=== PATIENT | female | born 1945 | race Caucasian/White ===

== ENCOUNTER 2017-12-02 10:35 | Outpatient (CLI) | payer MEDICARE ==
[~2017-12-02 10:35] MED LIST: Iopamidol 370 76% 100 ML VIAL ONE
--- NOTE | 2017-12-02 12:17 | CT ---
CT ABDOMEN AND PELVIS WITH IV AND ORAL CONTRAST: Date: 12/02/17 HISTORY: Abdominal pain. Constipation. Diarrhea. FINDINGS: Lung bases are clear. Prominent degenerative changes of the lumbar spine. Gallbladder is surgically a bsent. Small hemangioma noted centrally within the anterior segment right liver lobe. Calcification w ithin the arterial structures. Large amount of stool throughout the colon. Small amount of oral contrast is apparent within the distal esophagus. IMPRESSION: 1. Small amount of gastroesophageal reflux. 2. Constipation. 3. Status post cholecystectomy. 4. Prominent degenerative changes lumbar spine. POS: [facility]
== END 2017-12-02 10:36 | disposition home or self-care (01) ==
LOC: SCSCT 10:35
PROVIDERS: ATTEND Internal Medicine Gastroenterology
DX: R10.9 Unspecified abdominal pain (principal); D64.9 Anemia, unspecified; K21.9 Gastro-esophageal reflux disease without esophagitis; K59.00 Constipation, unspecified; M47.896 Other spondylosis, lumbar region; Z90.49 Acquired absence of other specified parts of digestive tract
CPT/HCPCS: 74177

== ENCOUNTER 2018-01-02 10:46 | Outpatient (CLI) | payer MEDICARE ==
--- NOTE | 2018-01-09 14:47 | MMO ---
BILATERAL SCREENING MAMMOGRAM: Date: 01/02/18 HISTORY: Annual screening exam. COMPARISON: 08/18/16, 05/15/15, 02/19/14. This patient's mammogram was interpreted with the assistance of computer-aided detection. FINDINGS: The breasts are predominantly fatty replaced. Calcifications in both breasts are stable. Intramammary node on the right is unchanged. Biopsy clip is demonstrated within the left breast. IMPRESSION: BIRADS 2: Benign Finding(s) POS: [facility]
== END 2018-01-02 10:47 | disposition home or self-care (01) ==
LOC: SCSMAMMO 10:46
PROVIDERS: ATTEND Family Medicine
DX: Z12.31 Encounter for screening mammogram for malignant neoplasm of breast (principal)
CPT/HCPCS: 77067

== ENCOUNTER 2019-02-01 20:48 | Emergency (ER) | payer MEDICARE ==
--- NOTE | 2019-02-01 22:55 | ULT ---
US Venous Doppler Rt Unilat History: Pain Comparison: None. Findings: Real-time grayscale and color evaluation as well as partial analysis of the right lower ext remity venous system was performed. The common femoral, femoral, proximal portions greater saphenous and deep femoral veins as well as the popliteal and posterior tibial veins were interrogate d. Partially occlusive thrombus of the right posterior tibial vein. Remainder the veins are patent. Impression: Partially occlusive thrombus right posterior tibial vein.
[2019-02-01] MEDS ORDERED: Enoxaparin Sodium 100 MG/ML SYRINGE ONE (23:09)
[2019-02-01 23:38] LABS: #Basophils 0.1 thou/uL (0.0-0.2); #Eosinphils 0.2 thou/uL (0.0-0.7); #Lymphocytes 2.4 thou/uL (1.20-3.40); #Monocytes 0.8 thou/uL (0.11-0.59); #Neutrophils 4.1 thou/uL (1.40-6.50); %Basophils 1.2 % (0.0-1.0); %Eosinophils 3.2 % (0.0-10.0); %Lymphocytes 31.7 % (21.0-51.0); %Monocytes 10.7 % (0.0-10.0); %Neutrophils 53.2 % (42.0-75.0); Hemoglobin 14.6 g/dL (12.0-16.0); Mean Corpuscular HGB CONC 32.2 g/dL (32.0-36.0); Mean Corpuscular Hemoglobin 29.6 pg (27.0-31.0); Mean Platelet Volume 6.2 fL (7.4-10.4); Platelet Count 252 thou/uL (130-400); RBC Distribution Width 15.2 % (11.5-14.5); Red Blood Cell (RBC) Count 4.92 mill/uL (4.20-5.40); White Blood Cell (WBC) Count 7.6 thou/uL (4.8-10.8)
[2019-02-01 23:42] LABS: INR-International Normal Ratio 0.9; PTT 34.3 SEC (22.9-36.1); Prothrombin Time 12.6 SEC (12.0-14.7)
[2019-02-01 23:49] LABS: Anion Gap 15 mmol/L (10-20); BUN (Urea Nitrogen) 6 mg/dL (9.8-20.1); Calc. Creatinine Clearance 0 mL/min (70-130); Calcium 9.4 mg/dL (7.8-10.44); Carbon Dioxide 25 mmol/L (23-31); Chloride 99 mmol/L (98-107); Estimated GFR-MDRD 75; Glucose 104 mg/dL (83-110); Potassium 4.3 mmol/L (3.5-5.1); Sodium 135 mmol/L (136-145)
--- NOTE | 2019-02-02 07:41 | CT ---
PRELIMINARY REPORT/[facility]/EMERGENCY AFTER HOURS PROCEDURE: PROCEDURE INFORMATION: Exam: CT Angiography Chest With Contrast Exam date and time: 02/01/2019 11:29 PM Clinical history: 73 years old, female; Patient HX: PT here with right lower leg pain, onset earlier today. No known injury since she slipped and nearly fell Tuesday, but no pain until today. No new pare sthesia - chronic diabetic neuropathy - no weakness. No recent illness; O/w in her usoh. PT states 5 of her 6 siblings have had dvt in the past, though she has never had one. No recent travel, immobilization, surgery, chest pain, or dyspnea. No syncope. TECHNIQUE: Imaging protocol: Computed tomographic angiography of the chest with intravenous contrast. 3D rendering: MIP reconstructed images were created and reviewed. Contrast material: ISO 370; Contrast volume: 85 ml; Contrast route: IV; COMPARISON: No relevant prior studies available. FINDINGS: Pulmonary arteries: No visible acute pulmonary embolism. Aorta: Unremarkable. No aortic aneurysm. No aortic dissection. Lungs: There is mild bibasilar atelectatic change or scarring. Pleural space: Unremarkable. No pneumothorax. No pleural effusion. Heart: There are atherosclerotic aortic and coronary artery calcifications. Gallbladder and bile ducts: There are postoperative changes of cholecystectomy. Lymph nodes: Unremarkable. No enlarged lymph nodes. Bones/joints: There are degenerative changes of the spine. Soft tissues: Unremarkable. IMPRESSION: 1. No visible acute pulmonary embolism. 2. No acute traumatic CT pathology of the chest. Thank you for allowing us to participate in the care of your patient. Dictated and Authenticated by: Juventino Venegas MD 02/02/2019 12:49 AM Central Time ([place] & [place]) FINAL REPORT CT PULMONARY ANGIOGRAM WITH IV CONTRAST AND 3D POSTPROCESSING: IMPRESSION: I agree with the preliminary report given by Matt. POS: [facility]
== END 2019-02-02 01:10 | disposition home or self-care (01) ==
LOC: SCSER 20:48
DX: I82.441 Acute embolism and thrombosis of right tibial vein (principal); E11.40 Type 2 diabetes mellitus with diabetic neuropathy, unspecified; E78.5 Hyperlipidemia, unspecified; K21.9 Gastro-esophageal reflux disease without esophagitis; I10 Essential (primary) hypertension; M81.0 Age-related osteoporosis without current pathological fracture; Z79.4 Long term (current) use of insulin; Z79.82 Long term (current) use of aspirin; Z79.899 Other long term (current) drug therapy
CPT/HCPCS: 71275; 80048; 85025; 85610; 85730; 96372; J1650

== ENCOUNTER 2019-05-31 10:18 | Outpatient (CLI) | payer MEDICARE ==
--- NOTE | 2019-05-31 12:03 | BD ---
DEXA BONE DENSITY STUDY: Date: 05/31/2019 HISTORY: Postmenopausal. FINDINGS: Lumbar Spine: BMD (g/cm2) L1 1.497 T-Score: +4.6 L2 1.307 T-Score: +2.5 L3 1.416 T-Score: +3.0 L4 1.185 T-Score: +1.1 Total 1.344 T-Score: +2.7 Left Femoral Neck: 0.732 T-Score: -1.1 Total Femur: 0.808 T-Score: -1.1 IMPRESSION: Osteopenia of left femoral neck. Normal bone mineral density of the lumbar spine. 10 year fracture risk for major osteoporotic fracture is 15% and for a hip fracture is 6.2%. These fr acture probabilities are calculated for an untreated patient. POS: [facility]
== END 2019-05-31 10:19 | disposition home or self-care (01) ==
LOC: BICMAMMO 10:18
PROVIDERS: ATTEND Family Medicine
DX: Z13.820 Encounter for screening for osteoporosis (principal); M85.852 Other specified disorders of bone density and structure, left thigh; Z78.0 Asymptomatic menopausal state
CPT/HCPCS: 77080

== ENCOUNTER 2024-03-02 00:46 | Inpatient (IN) | payer MEDICARE ==
[2024-03-02 02:39] VITALS: BMI 38.2
[2024-03-02] MEDS ORDERED: Ondansetron ODT 4 MG TAB PO PRN (03:28)
[2024-03-02] MEDS ORDERED: Ondansetron PF 4 MG/2 ML Vial IVP PRN (03:28)
[2024-03-02] MEDS ORDERED: Acetaminophen 325 MG TAB PO PRN (03:28)
[2024-03-02 03:57] LABS: #Basophils 0.03 10x3/uL (0.0-0.2); %Basophils 0.5 % (0.0-1.0); %Eosinophils 2.7 % (0.0-10.0); %Lymphocytes 28.2 % (21.0-51.0); %Monocytes 11.9 % (0.0-10.0); %Neutrophils 56.4 % (42.0-75.0); Hematocrit 34.9 % (36.0-47.0); Hemoglobin 10.8 g/dL (12.0-16.0); Mean Corpuscular HGB CONC 30.9 g/dL (32.0-36.0); Mean Corpuscular Hemoglobin 29.7 pg (27.0-31.0); Mean Corpuscular Volume 95.9 fL (78.0-98.0); Mean Platelet Volume 10.4 fL (7.4-10.4); Platelet Count 152 10x3/uL (130-400); RBC Distribution Width 15.4 % (11.5-14.5); Red Blood Cell (RBC) Count 3.64 mill/uL (4.20-5.40)
[2024-03-02 04:22] LABS: ALT (SGPT) 7 U/L (8-55); AST (SGOT) 12 U/L (5-34); Albumin 2.9 g/dL (3.4-4.8); Alkaline Phosphatase 55 U/L (40-110); Anion Gap 12 mmol/L (10-20); BUN (Urea Nitrogen) 11 mg/dL (9.8-20.1); Bilirubin, Total 0.6 mg/dL (0.2-1.2); Calc. Creatinine Clearance 86 mL/min (70-130); Calcium 8.3 mg/dL (7.8-10.44); Carbon Dioxide 19 mmol/L (23-31); Chloride 107 mmol/L (98-107); Estimated GFR 77; Glucose 113 mg/dL (83-110); Potassium 4.2 mmol/L (3.5-5.1); Protein, Total 5.9 g/dL (5.8-8.1); Sodium 134 mmol/L (136-145)
[2024-03-02 05:16] LABS: Troponin I Less than 0.010 ng/mL (< 0.028)
[2024-03-02] MEDS ORDERED: Famotidine/PF 20 mg/2ml Vial SLOW IVP SCH (09:00)
[2024-03-02] MEDS ORDERED: Famotidine 20 MG TAB PO SCH (09:00)
[2024-03-02] MEDS: Pantoprazole DR 40 MG TAB PO SCH (09:53)
[2024-03-02] MEDS: Enoxaparin 40 MG (0.4 mL) SYRINGE SC SCH (09:53)
[2024-03-02] MEDS: Lisinopril 2.5 MG TAB PO SCH (09:53)
[2024-03-02] MEDS: Sertraline 100 MG TAB PO SCH (09:54)
[2024-03-02] MEDS: Gabapentin 300 MG CAP PO SCH (09:54)
[2024-03-02] MEDS ORDERED: Dextrose 5% in Water 1,000 ML IV PRN (12:19)
[2024-03-02] MEDS ORDERED: Glucagon 1 MG/ML KIT IM PRN (12:19)
[2024-03-02] MEDS ORDERED: Dextrose 50% Abboject 50 ML SYRINGE SLOW IVP PRN (12:19)
[2024-03-02] MEDS ORDERED: Heparin 10,000 UNITS/ 10 ML VIAL ONE (14:43)
[2024-03-02] MEDS ORDERED: CEFAZOLIN 2 GM VIAL ONE (14:43)
[2024-03-02] MEDS ORDERED: Midazolam HCl 2 mg/2 ml Vial ONE (14:43)
[2024-03-02] MEDS ORDERED: CEFAZOLIN 1 GM VIAL ONE (14:43)
[2024-03-02] MEDS ORDERED: fentaNYL 50 mcg/mL 1 mL Vial ONE (14:43)
[2024-03-02] MEDS ORDERED: Gentamicin 80 MG/2 ML VIAL ONE (14:44)
[2024-03-02] MEDS: Insulin Lispro 100 UNIT/ML 10 ML VIAL SC PRN (20:25)
[2024-03-02] MEDS: Atorvastatin Calcium 20 MG TAB PO SCH (20:26)
[2024-03-02] MEDS: traMADol HCl 50 MG TAB PO PRN (20:29)
[2024-03-03 04:05] LABS: #Basophils Less than 0.03 10x3/uL (0.0-0.2); %Basophils 0.2 % (0.0-1.0); %Eosinophils 1.1 % (0.0-10.0); %Lymphocytes 22.5 % (21.0-51.0); %Monocytes 12.6 % (0.0-10.0); %Neutrophils 63.4 % (42.0-75.0); Hematocrit 35.7 % (36.0-47.0); Hemoglobin 11.2 g/dL (12.0-16.0); Mean Corpuscular HGB CONC 31.4 g/dL (32.0-36.0); Mean Corpuscular Hemoglobin 29.2 pg (27.0-31.0); Mean Platelet Volume 10.7 fL (7.4-10.4); Platelet Count 176 10x3/uL (130-400); RBC Distribution Width 15.7 % (11.5-14.5); Red Blood Cell (RBC) Count 3.84 mill/uL (4.20-5.40)
[2024-03-03 04:14] LABS: Anion Gap 11 mmol/L (10-20); BUN (Urea Nitrogen) 11 mg/dL (9.8-20.1); Calc. Creatinine Clearance 78 mL/min (70-130); Calcium 8.3 mg/dL (7.8-10.44); Carbon Dioxide 24 mmol/L (23-31); Chloride 106 mmol/L (98-107); Estimated GFR 68; Glucose 157 mg/dL (83-110); Sodium 137 mmol/L (136-145)
[2024-03-03] MEDS: FLU (Fluad Triv) TS24-25 (65UP)/MF59C/PF 45 MCG/0.5 ML Syringe IM ONE (11:13)
[2024-03-03 12:21] VITALS: TEMP 98.5
[2024-03-03 17:01] VITALS: BP 128/66
[2024-03-05] MEDS ORDERED: Semaglutide [Ozempic] 0.25 MG/0.368 ML Pen.Injctr SC SCH (09:00)
== END 2024-03-03 16:00 | disposition home or self-care (01) | DRG 242 ==
LOC: 2SE 02:06 → PCU 02:13 → OBSVTOIN 12:20
PROVIDERS: ADMIT Internal Medicine; ATTEND Internal Medicine
PROC: 0JH606Z Insertion of Pacemaker, Dual Chamber into Chest Subcutaneous Tissue and Fascia, Open Approach (ICD-10-PCS; principal; 2024-03-02)
PROC: 02H63JZ Insertion of Pacemaker Lead into Right Atrium, Percutaneous Approach (ICD-10-PCS; 2024-03-02)
PROC: 02HK3JZ Insertion of Pacemaker Lead into Right Ventricle, Percutaneous Approach (ICD-10-PCS; 2024-03-02)
DX: I44.1 Atrioventricular block, second degree (principal); I50.21 Acute systolic (congestive) heart failure; I11.0 Hypertensive heart disease with heart failure; F32.A Depression, unspecified; E11.9 Type 2 diabetes mellitus without complications; E78.5 Hyperlipidemia, unspecified; K21.9 Gastro-esophageal reflux disease without esophagitis; Z79.899 Other long term (current) drug therapy; R00.1 Bradycardia, unspecified; D64.9 Anemia, unspecified; Z86.718 Personal history of other venous thrombosis and embolism; I34.0 Nonrheumatic mitral (valve) insufficiency
CPT/HCPCS: 33208; 36415; 36416; 71045; 80048; 80053; 84484; 85025; 93005; 93010; 93306; 93970; 99152; 99153; C1785; C1898; G0378; J0690; J1580; J1644; J1650; J1815; J2250; J3010